=== PATIENT | female | born 1990 ===

== ENCOUNTER 2020-12-09 15:17 | Emergency (ER) | payer MEDICAID ==
[~2020-12-09] VITALS: Ht 162.6 cm; Wt 63.5 kg
[2020-12-09 18:09] VITALS: BP 128/85
[2020-12-09] MEDS ORDERED: KETOROLAC TROMETH 60MG/2ML VIAL IM ONE (18:15)
== END 2020-12-09 18:39 | disposition home or self-care (01) ==
LOC: ER 15:17 → EDBD 15:17 → ER 18:39
DX: T22.211A Burn of second degree of right forearm, initial encounter (principal); T20.10XA Burn of first degree of head, face, and neck, unspecified site, initial encounter; T25.122A Burn of first degree of left foot, initial encounter; X10.2XXA Contact with fats and cooking oils, initial encounter; Y93.89 Activity, other specified; Y92.89 Other specified places as the place of occurrence of the external cause; Y99.8 Other external cause status
CPT/HCPCS: 96372; 99283; J1885